=== PATIENT | male | born 1940 | race Caucasian/White ===

== ENCOUNTER 2023-09-29 14:26 | Outpatient (CLI) | payer MEDICARE, SELFPAY ==
--- NOTE | ~2023-09-29 | MR_ITS ---
EXAMINATION: MR lumbar spine wo con DATE: 09/29/2023 15:27 INDICATION: Low back pain without sciatica. TECHNIQUE: Magnetic resonance imaging (MRI) of the lumbar spine was performed without intravenous con trast. COMPARISON: None FINDINGS: Bone alignment is normal. Vertebral body heights and intervertebral disc heights are normal . There are changes of anterior and posterior fusion procedures from L2 to S1 with interbody devices and pedicle screws. The distal spinal cord signal intensity is normal. The conus medullaris is at L1. There is a 1.7 x 1.1 x 2.4 cm seroma in the laminectomy bed at L4. There are cysts in the kidneys me asuring up to 6.5 cm on the right. The following disc levels are specifically discussed: L1-L2: The disc is bulging. There is severe bilateral facet joint osteoarthritis. There is mild bilat eral neural foraminal stenosis. There is mild central canal stenosis. L2-L3: There is mild right facet joint hypertrophy. There is mild bilateral neural foraminal stenosis . There is no central canal stenosis. There is posterior decompression L3-L4: There is mild right facet joint hypertrophy. There is mild bilateral neural foraminal stenosis . There is no central canal stenosis. There is posterior decompression. L4-L5: There is mild right facet joint hypertrophy. There is no neural foraminal stenosis. There is n o central canal stenosis. There is posterior decompression. L5-S1: There is moderate right facet joint hypertrophy. There is mild bilateral neural foraminal sten osis. There is mild central canal stenosis. There is posterior decompression. IMPRESSION: 1. Mild lumbar spondylosis. 2. Anterior and posterior fusion procedures from L2 to S1. Reviewed, dictated and finalized at location A. [employer]
== END 2023-09-29 14:27 | disposition home or self-care (01) ==
PROVIDERS: Visit Provider Orthopaedic Surgery
DX: M43.06 Spondylolysis, lumbar region (principal); Z98.1 Arthrodesis status
CPT/HCPCS: 72148